=== PATIENT | female | born 1985 | race Caucasian/White ===

== ENCOUNTER 2018-03-31 14:11 | Emergency (ER) | payer BC, OTHER ==
[2018-03-31 14:53] VITALS: BP 152/110
--- NOTE | 2018-03-31 14:59 | EDM.PDOC ---
<Candelaria Mejia - Last Filed: 03/31/18 15:33> ED HPI GENERAL MEDICAL PROBLEM - General Chief Complaint: Cardiovascular Problem Stated Complaint: HEART PALPITATIONS Time Seen by Provider: 03/31/18 14:22 Source of Information: Reports: Patient History Limitations: Reports: No Limitations - History of Present Illness INITIAL COMMENTS - FREE TEXT/NARRATIVE: Vicki is a 32-year-old female with history of anxiety and PCOS who reports intermittent episodes of palpitations for the past 3-4 days. She states her PCP (Fatmata Carrillo) switched her from Zoloft 100mg to Prozac 20mg due to Zoloft not adequately treating her anxiety. She believes her anxiety has improved since the medication change. Pt describes the palpitations as a sensation of her heart beating quickly. Episodes are accompanied by the sensation of shortness of breath and numbness/ tingling in her bilateral hands. She does not experience chest pain, pain with breathing, or perioral numbnes. She does have the sensation of "pinching" in her mid-chest. She states these episodes last from 15 minutes to 2 hours. She is not currently having symptoms. Pt reports symptoms feel "like an anxiety attack," but this time she does not feel "like her world is crashing down around her." Pt denies personal history of heart disease, congenital heart disease or structural abnormalities, valvular disease, or blood clots. She is not taking combined oral contraceptives. No history of thyroid disease. She does have a history of anxiety attacks 1.5 years ago, after she miscarried a third daughter at 24 weeks of gestation. She does not take weight loss supplements or any other supplements. No smoking, alcohol, or recreational drug use. Caffeine intake is <100mg per day, described as one cup of coffee every other day. She denies drinking energy drinks. - Related Data Allergies Allergy/AdvReac Type Severity Reaction Status Date / Time corn Allergy Cannot Verified 03/31/18 14:24 Remember Dairy Products Allergy Cannot Verified 03/31/18 14:24 Remember gluten Allergy Cannot Verified 03/31/18 14:24 Remember Latex, Natural Rubber Allergy Itching Verified 03/31/18 14:23 Home Meds: Home Meds FLUoxetine HCl [Prozac] 20 mg PO DAILY 03/31/18 [History] ED ROS GENERAL - Review of Systems Constitutional: Denies: Fever, Chills, Weakness, Fatigue, Diaphoresis HEENT: Denies: Throat Swelling, Vision Change Respiratory: Reports: Shortness of Breath (sensation of being unable to catch her breath). Denies: Pleuritic Chest Pain, Cough Cardiovascular: Reports: Palpitations (as per HPI). Denies: Chest Pain, Lightheadedness, Syncope GI/Abdominal: Reports: No Symptoms. Denies: Abdominal Pain : Reports: No Symptoms Musculoskeletal: Reports: No Symptoms Skin: Reports: No Symptoms Neurological: Reports: Numbness (numbness in bilateral hands with episodes), Tingling (tingling in bilateral hands with episodes). Denies: Confusion, Dizziness, Headache, Syncope, Tremors, Difficulty Walking Psychiatric: Reports: Anxiety Hematologic/Lymphatic: Denies: Anemia Immunologic: Denies: Anaphylaxis ED EXAM, GENERAL - Physical Exam Exam Limited By: No Limitations General Appearance: Alert, Mild Distress, Obese Eye Exam: Bilateral Eye: Normal Inspection Ears: Hearing Grossly Normal Throat/Mouth: Normal Inspection, Normal Voice Neck: Normal Inspection, Non-Tender. No: Thyromegaly Respiratory/Chest: No Respiratory Distress, Normal Breath Sounds (not tachypneic on exam), Chest Non-Tender Cardiovascular: Normal Peripheral Pulses, Regular Rate, Rhythm. No: Extra Beats Peripheral Pulses: 2+: Radial (L), Radial (R), Posterior Tibial (L), Posterior Tibial (R) GI/Abdominal: Normal Bowel Sounds, Soft, Non-Tender Extremities: Normal Inspection, Normal Capillary Refill Neurological: Alert, Oriented, CN II-XII Intact, Normal Cognition, Normal Reflexes, No Motor/Sensory Deficits Psychiatric: Anxious (mood is anxious, affect is congruent), Tearful ( occasionally tearful when discussing her loss) Skin Exam: Warm, Dry, Intact. No: Diaphoretic Lymphatic: No Adenopathy Course - Vital Signs Last Recorded V/S: Last Vital Signs Temp 37.0 C 03/31/18 14:21 Pulse 82 03/31/18 14:21 Resp 18 03/31/18 14:21 BP 152/110 H 03/31/18 14:21 Pulse Ox 99 03/31/18 14:21 - Orders/Labs/Meds Orders: Active Orders 24 hr Category Date Time Status EKG Documentation Completion [RC] STAT Care 03/31/18 14:24 Active Departure - Departure Disposition: Home, Self-Care 01 Clinical Impression: Hyperventilation syndrome, Anxiety Instructions: Hyperventilation, Panic Attack, [id number] Referrals: Julia Carrillo MD [Primary Care Provider] - Forms: ED Department Discharge Additional Instructions: You were seen in the emergency room for symptoms of a racing heart, tingling in her fingers, occasional pinching sensation in her chest, and shortness of breath , on off for the past few days. Your oxygen saturation was noted to be 99% on room air, consistent with hyperventilation. Workup in the ER included an ECG, which was normal. Based on your history, physical examination, and ECG, your symptoms are most likely due to hyperventilation syndrome, due to anxiety. A workup, to rule out medical causes of hyperventilation was offered, but declined. Be aware that hyperventilation syndrome is unpleasant, but not harmful to you, and that it should resolve once the Prozac becomes effective, likely within a week or two. If your symptoms become unbearable, please follow-up with your PCP, Julia Carrillo, to discuss treatment options. If any other problems, please do not hesitate to return to the ER. - My Orders Last 24 Hours: My Active Orders 03/31/18 14:24 EKG Documentation Completion [RC] STAT - Assessment/Plan Last 24 Hours: My Active Orders 03/31/18 14:24 EKG Documentation Completion [RC] STAT <Jamal Burnett - Last Filed: 03/31/18 15:40> ED HPI GENERAL MEDICAL PROBLEM - History of Present Illness INITIAL COMMENTS - FREE TEXT/NARRATIVE: The medical student performed a history and physical examination, reported to me , then I performed a history and physical examination. I agree with the student' s documentation. Past Medical History HEENT History: Reports: None Cardiovascular History: Reports: None Respiratory History: Reports: None Gastrointestinal History: Reports: None Genitourinary History: Reports: None Other Genitourinary History: Ovarian cysts [employer] History: Reports: Polycystic Ovaries Musculoskeletal History: Reports: None Neurological History: Reports: None Psychiatric History: Reports: None Endocrine/Metabolic History: Reports: Diabetes, Type II, Obesity/BMI 30+ Hematologic History: Reports: None Immunologic History: Reports: None Oncologic (Cancer) History: Reports: None Dermatologic History: Reports: None - Infectious Disease History Infectious Disease History: Reports: Chicken Pox - Past Surgical History Head Surgeries/Procedures: Reports: None HEENT Surgical History: Reports: Tonsillectomy GI Surgical History: Reports: Cholecystectomy Other GI Surgeries/Procedures: partial cholecystectomy Female Surgical History: Reports: D&C, Other (See Below) Other Female Surgeries/Procedures: left ovary removed Social & Family History - Family History Family Medical History: Noncontributory HEENT: Reports: None Cardiac: Reports: None Respiratory: Reports: Asthma GI: Reports: None : Reports: UTI, Recurrent OBGYN: Reports: None Musculoskeletal: Reports: None Other Musculoskeletal Family History: muscular dystrophy Neurological: Reports: None Psychiatric: Reports: None Endocrine/Metabolic: Reports: None Hematologic: Reports: None Immunologic: Reports: None Dermatologic: Reports: None Oncologic: Reports: None - Tobacco Use Smoking Status *Q: Never Smoker Second Hand Smoke Exposure: No - Caffeine Use Caffeine Use: Reports: Coffee Caffeine Use Comment: 0.5 cup/day - Recreational Drug Use Recreational Drug Use: No ED ROS GENERAL - Review of Systems Review Of Systems: ROS reveals no pertinent complaints other than HPI. ED EXAM, GENERAL - Physical Exam Exam: See Below EKG INTERPRETATION EKG Date: 03/31/18 Time: 14:32 Rhythm: NSR Rate (Beats/Min): 79 [place]: Normal P-Wave: Present QRS: Normal ST-T: Normal QT: Normal Comparison: NA - No Prior EKG Course - Re-Assessments/Exams Free Text/Narrative Re-Assessment/Exam: 03/31/18 14:59 Her oxygen saturation is noted to be 99% on room air, consistent with hyperventilation. The patient's intermittent symptoms of a rapid heartbeat, tingling in her fingers, occasionally prickly sensation in her chest, and dyspnea are most likely due to hyperventilation syndrome due to unmasked anxiety , due to her switch from Zoloft to Prozac. I offered workup to rule out medical causes of hyperventilation, such as hyperthyroidism, liver failure, urgency, severe anemia, acute coronary event, pneumothorax, PE, etc., however, the patient declined. I explained to the patient that while her symptoms are pleasant, they are not harmful to her. I suggested that she could talk to her PCP about getting a bridge benzodiazepine, but the patient would prefer to simply wait until the Prozac becomes effective, likely within a week or two. Departure - Departure Time of Disposition: 15:03 Condition: Good
== END 2018-03-31 15:18 | disposition home or self-care (01) ==
LOC: JD.ED 14:11
DX: F45.8 Other somatoform disorders (principal); F41.9 Anxiety disorder, unspecified; Z91.018 Allergy to other foods; Z91.011 Allergy to milk products
CPT/HCPCS: 93005; 93010; 99284-25